=== PATIENT | female | born 1960 | race Caucasian/White ===

== ENCOUNTER 2021-07-12 11:18 | Outpatient (CLI) | payer BC, SELFPAY ==
--- NOTE | 2021-07-12 11:37 | XR_ITS ---
WS: [id number] Exam: XR hip RT 2-3V wo/w pel* [id number] Date/Time of Exam: 07/12/2021 11:54 AM Reason For Exam: R HIP PAIN/R HIP BURSITIS No fracture or dislocation. Minimal degenerative change. There is acetabular morphology that might pr edispose the patient to acetabular femoral impingement. Normal soft tissues. XR/XR hip RT 2-3V wo/w pel* [id number] IMPRESSION: 1. Minimal degenerative change of the acetabulum. No fracture. 2. Acetabular morphology that might predispose the patient to femoral acetabula r impingement.
== END 2021-07-12 11:19 | disposition home or self-care (01) ==
LOC: RAD 11:27
PROVIDERS: PCP Nurse Practitioner Family; Visit Provider Nurse Practitioner Family
DX: M70.71 Other bursitis of hip, right hip (principal)
CPT/HCPCS: 73502

== ENCOUNTER 2023-11-06 15:42 | Outpatient (CLI) | payer OTHER, SELFPAY ==
--- NOTE | 2023-11-06 17:13 | XRR_ITS ---
PROCEDURE INFORMATION: Exam: XR Right Ribs with PA Chest Exam date and time: 11/06/2023 5:18 PM Age: 63 years old Clinical indication: Chest wall pain; Right; Additional info: Cough, ribs RT with chest pa lateral [id number] TECHNIQUE: Imaging protocol: Radiologic exam of the right ribs with PA chest. Views: 3 views COMPARISON: CT abdomen pelvis w con* [id number] 02/13/2018 7:29 AM FINDINGS: Lungs: Calcified right hilar lymph nodes. No new focal infiltrates seen of the lungs. Pleural spaces: No large or obvious pneumothorax nor pleural effusion seen. Heart/Mediastinum: Heart size appears within normal. Bones/joints: No displaced fracture seen of visualized portions of right ribs. Tiny calcific density along upper-outer proximal humerus may calcific tendonitis/bursitis/periarthritis. Degenerative changes spine. Soft tissues: No subcutaneous emphysema seen along the chest wall. Rib cartilage calcifications. Intraperitoneal space: No free intraperitoneal air seen beneath the diaphragm. XR/XR ribs RT mn 3V w CXR1V [id number] IMPRESSION: No displaced fracture seen of visualized portions right ribs.
== END 2023-11-06 15:43 | disposition home or self-care (01) ==
LOC: RAD 15:42
PROVIDERS: PCP Nurse Practitioner Family; Visit Provider Nurse Practitioner Family
DX: R05.9 Cough, unspecified (principal); I89.8 Other specified noninfective disorders of lymphatic vessels and lymph nodes; M47.9 Spondylosis, unspecified
CPT/HCPCS: 71101